=== PATIENT | male | born 1950 | race American Indian/Alaskan Native ===

== ENCOUNTER 2016-08-23 03:40 | Emergency (ER) | payer MEDICARE ==
[2016-08-23] MEDS ORDERED: MOTRIN ONE (05:06)
[2016-08-23] MEDS ORDERED: FLEXERIL ONE (05:06)
[2016-08-23] MEDS ORDERED: FLEXERIL PO ONE (05:24)
[2016-08-23] MEDS ORDERED: MOTRIN PO ONE (05:24)
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
[2016-08-23] MEDS ORDERED: VALIUM PO ONE (07:48)
[2016-08-23 08:26] LABS: Alanine Aminotransferase 6 units/L (7-56); Albumin 4.2 g/dL (3.9-5); Albumin/Globulin Ratio 1.3 %; Alkaline Phosphatase 84 units/L (35-129); Anion Gap 15 mmol/L; Bilirubin,Total 0.5 mg/dL (0.1-1.2); Blood Urea Nitrogen 9 mg/dL (9-20); Calcium 9.2 mg/dL (8.4-10.2); Carbon Dioxide 26 mmol/L (22-30); Chloride 102.2 mmol/L (98-107); Creatine Kinase 61 units/L (55-170); Glucose 87 mg/dL (75-100); Potassium 4.2 mmol/L (3.6-5.0); Sodium 139 mmol/L (137-145); Total Protein 7.4 g/dL (6.3-8.2)
[2016-08-23 08:29] LABS: Basophils % (Auto) 0.3 % (0.0-1.8); Eosinophils % (Auto) 4.4 % (0.0-4.3); Hematocrit 41.7 % (35.5-45.6); Hemoglobin 14.2 gm/dl (11.8-15.2); Mean Corpuscular HGB Conc 34 % (32-34); Mean Corpuscular Hemoglobin 39 pg (28-32); Mean Corpuscular Volume 113 fl (84-94); Platelet Count 180 K/mm3 (140-440); Red Blood Count 3.68 M/mm3 (3.65-5.03); Red Cell Distribution Width 14.4 % (13.2-15.2); White Blood Count 6.5 K/mm3 (4.5-11.0)
[2016-08-23 08:41] LABS: Bilirubin,Direct < 0.2 mg/dL (0-0.2); Bilirubin,Indirect 0.3 mg/dL
[2016-08-23 10:40] VITALS: BP 128/75
== END 2016-08-23 11:15 | disposition home or self-care (01) ==
LOC: ED 03:40
DX: M43.6 Torticollis (principal); I25.2 Old myocardial infarction; Z86.73 Personal history of transient ischemic attack (TIA), and cerebral infarction without residual deficits
CPT/HCPCS: 36415; 80048; 80074; 82550; 85025; 99283

== ENCOUNTER 2017-06-12 12:46 | Emergency (ER) | payer MEDICARE ==
[2017-06-12] MEDS ORDERED: NACL 0.9% 1000 ML 1,000 ML IV ONE (13:35)
[2017-06-12 15:09] LABS: Basophils # (Auto) 0.1 K/mm3 (0.0-0.1); Basophils % (Auto) 1.2 % (0.0-1.8); Eosinophils # (Auto) 0.1 K/mm3 (0.0-0.4); Eosinophils % (Auto) 1.9 % (0.0-4.3); Hematocrit 48.2 % (35.5-45.6); Hemoglobin 16.9 gm/dl (11.8-15.2); Lymphocytes # (Auto) 2.3 K/mm3 (1.2-5.4); Lymphocytes % (Auto) 44.6 % (13.4-35.0); Mean Corpuscular HGB Conc 35 % (32-34); Mean Corpuscular Hemoglobin 39 pg (28-32); Mean Corpuscular Volume 112 fl (84-94); Monocytes # (Auto) 0.6 K/mm3 (0.0-0.8); Monocytes % (Auto) 11.8 % (0.0-7.3); Platelet Count 124 K/mm3 (140-440); Red Blood Count 4.32 M/mm3 (3.65-5.03); Red Cell Distribution Width 13.9 % (13.2-15.2)
[2017-06-12 15:20] LABS: INR 0.91 (0.87-1.13)
[2017-06-12 15:28] LABS: Alanine Aminotransferase 16 units/L (7-56); Albumin 4.3 g/dL (3.9-5); BUN/Creatinine Ratio 29; Blood Urea Nitrogen 26 mg/dL (9-20); Calcium 8.8 mg/dL (8.4-10.2); Hemolysis Index 12; Lipase 54 units/L (13-60)
[2017-06-13 03:52] VITALS: BP 121/71
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
== END 2017-06-13 05:30 | disposition home or self-care (01) ==
LOC: ED 12:46
DX: K62.5 Hemorrhage of anus and rectum (principal); D69.6 Thrombocytopenia, unspecified; R10.13 Epigastric pain; K74.69 Other cirrhosis of liver; Z86.73 Personal history of transient ischemic attack (TIA), and cerebral infarction without residual deficits; Z88.8 Allergy status to other drugs, medicaments and biological substances; F17.200 Nicotine dependence, unspecified, uncomplicated
CPT/HCPCS: 36415; 80053; 82271; 83690; 85025; 85610; 85730; 86850; 86900; 86901; 93005; 93010; 99284

== ENCOUNTER 2019-04-19 04:35 | Emergency (ER) | payer MEDICARE ==
[2019-04-19 05:20] LABS: Basophils % (Auto) 0.2 % (0.0-1.8); Eosinophils # (Auto) 0.3 K/mm3 (0.0-0.4); Eosinophils % (Auto) 5.1 % (0.0-4.3); Hematocrit 39.9 % (35.5-45.6); Hemoglobin 13.9 gm/dl (11.8-15.2); Lymphocytes # (Auto) 2.5 K/mm3 (1.2-5.4); Lymphocytes % (Auto) 43.1 % (13.4-35.0); Mean Corpuscular HGB Conc 35 % (32-34); Mean Corpuscular Volume 115 fl (84-94); Monocytes # (Auto) 0.5 K/mm3 (0.0-0.8); Monocytes % (Auto) 8.8 % (0.0-7.3); Platelet Count 175 K/mm3 (140-440); Red Blood Count 3.49 M/mm3 (3.65-5.03); Red Cell Distribution Width 14.6 % (13.2-15.2)
[2019-04-19 05:39] LABS: Alanine Aminotransferase 7 units/L (7-56); Albumin 4.3 g/dL (3.9-5); BUN/Creatinine Ratio 11; Blood Urea Nitrogen 10 mg/dL (9-20); Calcium 8.9 mg/dL (8.4-10.2); Hemolysis Index 6
[2019-04-19 05:40] LABS: Bilirubin,Direct < 0.2 mg/dL (0-0.2)
[2019-04-19 07:51] VITALS: BP 132/68
[2019-04-19] MEDS ORDERED: MORPHINE 4 MG/1 ML INJ IV ONE (08:03)
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
--- NOTE | 2019-04-19 08:42 | XRay Report ---
ABDOMEN 2 VIEW(S) INDICATION / CLINICAL INFORMATION: Abdominal pain, fatigue. COMPARISON: None available. FINDINGS: TUBES / LINES: None. BOWEL GAS PATTERN: No significant abnormality. There is moderate stool in the distal colon. FREE AIR / EXTRALUMINAL GAS: None seen. ADDITIONAL FINDINGS: No significant additional findings. IMPRESSION: No acute process. Mild fecal retention. Signer Name: Tim Man Jr, MD Signed: 04/19/2019 8:37 AM Workstation Name: [id number]
--- NOTE | 2019-04-19 09:45 | Cat Scan Report ---
CT ABDOMEN AND PELVIS WITHOUT IV CONTRAST INDICATION: rt sided abdominal and flank pain, hx of cirhossis. COMPARISON: No prior CTs. TECHNIQUE: All CT scans at this facility use dose modulation, automated exposure control, iterative reconstructi on or weight based dosing, when appropriate, to reduce radiation dose to as low as reasonably achieva ble. FINDINGS: Lung Bases: No significant abnormality. Skeletal System: No acute abnormality. ABDOMEN: Liver: There are several punctate hepatic hypodensities which are too small to characterize but likel y tiny cysts. Given noncontrast technique, the liver is otherwise unremarkable. Gallbladder: No significant abnormality. Bile Ducts: No significant abnormality. Pancreas: No significant abnormality. Spleen: No significant abnormality. Adrenals: No significant abnormality. Right Kidney: No significant abnormality. Left Kidney: Hypodense lesion at the upper pole cortex is likely a cyst. Upper GI tract: No significant abnormality. Lymph Nodes: No significant adenopathy. Aorta: No significant abnormality. Additional Findings: No significant abnormality. PELVIS: Colon: No acute abnormality. Urinary Bladder and Distal Ureters: No significant abnormality. Appendix: No significant abnormality. Lymph Nodes: No significant adenopathy. Additional Findings: Prostate is mildly enlarged. IMPRESSION: 1. Within the limitations of non contrast technique, no acute process in the abdomen or pelvis. 2. Incidental findings, as above. Signer Name: Alex Marcelo MD Signed: 04/19/2019 9:41 AM Workstation Name: [email or web address]
[2019-04-19 10:51] LABS: Bilirubin,Urine NEG (Negative); Blood,Urine NEG (Negative); Color,Urine Yellow (Yellow); Mucus,Urine FEW /HPF; Protein,Urine <15 mg/dL mg/dL (Negative)
== END 2019-04-19 11:16 | disposition home or self-care (01) ==
LOC: ED 04:35
DX: K74.60 Unspecified cirrhosis of liver (principal); I25.2 Old myocardial infarction; F17.200 Nicotine dependence, unspecified, uncomplicated; Z86.73 Personal history of transient ischemic attack (TIA), and cerebral infarction without residual deficits; Z79.899 Other long term (current) drug therapy; Z91.041 Radiographic dye allergy status
CPT/HCPCS: 36415; 74019; 74176; 80053; 80076; 81001; 83690; 85025; 96374; 99284; J2270